=== PATIENT | male | born 1945 | race Caucasian/White ===

== ENCOUNTER 2017-05-25 16:57 | Outpatient (CLI) | payer MEDICARE ==
--- NOTE | 2017-05-25 17:21 | XRAY Preliminary Report ---
Exam: XR CHEST 2 VIEW X-RAY IMPRESSION: Normal 2-view chest radiography. [facility] SITE ID: [id number]
--- NOTE | 2017-05-25 17:37 | XRAY Report ---
EXAM: CHEST RADIOGRAPHY EXAM DATE: 05/25/2017 05:12 PM. CLINICAL HISTORY: Pneumonia diagnosed 2 months ago. Follow-up exam. COMPARISON: None. TECHNIQUE: 2 views. FINDINGS: Lungs/Pleura: No focal opacities evident. No pleural effusion. No pneumothorax. Normal volumes. Mediastinum: Heart and mediastinal contours are unremarkable. Other: None. IMPRESSION: Normal 2-view chest radiography. [facility] Referring Provider Line: [phone] SITE ID: [id number]
== END 2017-05-25 16:58 | disposition home or self-care (01) ==
LOC: DI 16:57
PROVIDERS: ATTEND Specialist
DX: J18.9 Pneumonia, unspecified organism (principal)
CPT/HCPCS: 71046

== ENCOUNTER 2018-08-19 11:09 | Outpatient (CLI) | payer MEDICARE ==
--- NOTE | 2018-08-19 12:30 | CT Report ---
Reason: CALCULUS OF KIDNEY Procedure Date: 08/19/2018 Accession Number: [id number] / [id number] Procedure: CT - Abdomen/Pelvis WO CPT Code: FULL RESULT: EXAM: CT ABDOMEN AND PELVIS (CT KUB) EXAM DATE: 08/19/2018 11:53 AM. CLINICAL HISTORY: Calculus of kidney. COMPARISONS: None. TECHNIQUE: Routine axial helical CT imaging was performed through the abdomen and pelvis without IV contrast. Reconstructions: Coronal and sagittal. In accordance with CT protocol optimization, one or more of the following dose reduction techniques were utilized for this exam: automated exposure control, adjustment of mA and/or KV based on patient size, or use of iterative reconstructive technique. FINDINGS: Lung Bases: Groundglass changes predominantly at the right lung base, mild suggestion of traction bronchiectasis suggestive of scarring. Right Kidney/Ureter: Upper pole 1.2 x 1.1 cm hypodense lesion within the kidneys best appreciated on sagittal image 82 of series 6 but also seen on axial image 46 of series 3, not characterized and not a simple cyst by CT criteria. There is a nonobstructing 3 mm lower pole calculus as well as a nonobstructing anterior 3 mm mid kidney calculus. A 5 mm calcification in the region of the renal hilum was felt to be vascular in nature. No hydronephrosis. Left Kidney/Ureter: Staghorn calculus in the upper pole moiety of the left kidney with the largest fragment measuring 1.2 cm as well as a nonobstructing anterior mid kidney calculus which measures 0.5 cm. Simple cysts are noted in the left kidney. Other Solid Organs: Noncontrast images of the solid organs are grossly unremarkable. Gallbladder/Bile Ducts: Unremarkable. Peritoneal Cavity: No free fluid, free air or tashi adenopathy. Diverticulosis of the sigmoid colon is noted. No bowel obstruction. Pelvic Organs: No bladder stones or wall thickening. Noncontrast images of the visualized pelvic organs are unremarkable. Vasculature: Unremarkable. Other: None. IMPRESSION: Bilateral renal calculi as described. Non-characterized hypodense upper pole right renal lesion. A right renal ultrasound could be obtained to determine whether this represents a simple cyst. Otherwise, definitive characterization by multiphase CT renal mass protocol. [facility]
== END 2018-08-19 11:10 | disposition home or self-care (01) ==
LOC: LAB 11:09
PROVIDERS: ATTEND Specialist
DX: N20.0 Calculus of kidney (principal)
CPT/HCPCS: 74176

== ENCOUNTER 2022-02-23 14:53 | Emergency (ER) | payer MEDICARE, OTHER ==
[2022-02-23] MEDS ORDERED: DEXAMETHASONE 10 MG/ML VIAL IVP STA (15:08)
[2022-02-23] MEDS ORDERED: EPINEPHrine 1 MG/ML AMP IM STA (15:08)
[2022-02-23] MEDS ORDERED: SODIUM CHLORIDE 0.9% 1,000 ML IV STA (15:09)
--- OUTSIDE RECORDS SUMMARY | 2022-02-23 15:24 | EXTERNAL MEDICAL SUMMARY RPT | Continuity of Care Document ---
:1945 Author Organization [facility] Address [address] [place] [address] Phone Allergies No information. Encounters No information. Functional Status No information. Immunizations No information. Medications No information. Problems No information. Procedures No information. Results/Labs test date author facility value unit interpret ation Result panel 1 (unknown) (no (unknown) (unknown) (no value) (units (unk nown) date) unknown) (unknown) (no (unknown) (unknown) [id number] (units (unkno wn) date) unknown) (unknown) (no (unknown) (unknown) 01/14/22 (units (unkno wn) date) unknown) (unknown) (no (unknown) (unknown) [id number] (units (unkn own) date) Street unknown) (unknown) (no (unknown) (unknown) Accession (units (unkn own) date) Number: unknown) [id number] (unknown) (no (unknown) (unknown) Age/Sex: 76 / M (units (unknown) date) Date of Service: unknown) (unknown) (no (unknown) (unknown) [place], [place] (units ( unknown) date) [id number] unknown) (unknown) (no (unknown) (unknown) Approved by: (units (u nknown) date) Prasanna Mendoza M.D. unknown) on 01/14/2022 at 13:12 (unknown) (no (unknown) (unknown) Bones: 5 (units (unkno wn) date) [id number] unknown) vertebrae are present. There is very mild rightward (unknown) (no (unknown) (unknown) COMPARISON: (units (un known) date) None. 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 No acute (unknown) (no (unknown) (unknown) Dictated by: (units (u nknown) date) Prasanna Mendoza M.D. unknown) on 01/14/2022 at 13:02 (unknown) (no (unknown) (unknown) FINDINGS: (units (unkn own) date) unknown) (unknown) (no (unknown) (unknown) IMPRESSION: (units (un known) date) Very mild unknown) rightward curvature of lower lumbar spine centered at (unknown) (no (unknown) (unknown) INDICATIONS: (units (u nknown) date) acute bilateral unknown) low back pain with sciatica (unknown) (no (unknown) (unknown) [facility] (units (unknown) date) unknown) (unknown) (no (unknown) (unknown) L3-4 level. (units (un known) date) unknown) (unknown) (no (unknown) (unknown) Loc: RAD (units (unkno wn) date) unknown) (unknown) (no (unknown) (unknown) Ordering (units (unkno wn) date) Provider: unknown) June Lynn P.A-C (unknown) (no (unknown) (unknown) PROCEDURE: XR (units ( unknown) date) LUMBAR SPINE unknown) 2-3V (unknown) (no (unknown) (unknown) Patient: (units (unkno wn) date) Lenore Carter unknown) MR#: [id number] (unknown) (no (unknown) (unknown) Procedure: XR (units ( unknown) date) lumbar spine unknown) 2-3V (unknown) (no (unknown) (unknown) Signed (units (unkno wn) date) unknown) (unknown) (no (unknown) (unknown) Soft tissues: (units ( unknown) date) Overlying bowel unknown) gas pattern is normal. No suspicious soft (unknown) (no (unknown) (unknown) TECHNIQUE: 3 (units (u nknown) date) views of the unknown) lumbar spine were acquired. (unknown) (no (unknown) (unknown) XRay Report (units (un known) date) unknown) (unknown) (no (unknown) (unknown) at L4-5 and (units (un known) date) L5-S1 levels. No unknown) vertebral body compression fractures. No (unknown) (no (unknown) (unknown) calcifications. (units (unknown) date) unknown) (unknown) (no (unknown) (unknown) compression (units (un known) date) unknown) (unknown) (no (unknown) (unknown) curvature (units (unkn own) date) unknown) (unknown) (no (unknown) (unknown) disc height and (units (unknown) date) bilateral facet unknown) arthrosis throughout lumbar spine is seen more (unknown) (no (unknown) (unknown) fracture or (units (un known) date) significant unknown) listhesis. (unknown) (no (unknown) (unknown) lesions. (units (unkno wn) date) unknown) (unknown) (no (unknown) (unknown) loss of (units (unkno wn) date) unknown) (unknown) (no (unknown) (unknown) of lower lumbar (units (unknown) date) spine centered unknown) at L3-4 level. Degenerative endplate changes, (unknown) (no (unknown) (unknown) prominent (units (unkn own) date) unknown) (unknown) (no (unknown) (unknown) suspicious bony (units (unknown) date) unknown) (unknown) (no (unknown) (unknown) tissue (units (unkno wn) date) unknown) Result panel 2 (unknown) (no (unknown) (unknown) (no value) (units (unk nown) date) unknown) (unknown) (no (unknown) (unknown) (Modic type I (units ( unknown) date) changes). At unknown) least moderate disc bulge is seen, with a central (unknown) (no (unknown) (unknown) 02/14/22 (units (unkno wn) date) unknown) (unknown) (no (unknown) (unknown) [address] [place] [address] (units (unknown) date) unknown) (unknown) (no (unknown) (unknown) 2019. (units (unkno wn) date) unknown) (unknown) (no (unknown) (unknown) ABDOMEN RENAL (units ( unknown) date) PROTOCOL, unknown) 11/30/2018, 16:44. (unknown) (no (unknown) (unknown) Accession (units (unkn own) date) Number: unknown) [id number] (unknown) (no (unknown) (unknown) Age/Sex: 76 / M (units (unknown) date) Date of Service: unknown) (unknown) (no (unknown) (unknown) Alignment and (units ( unknown) date) Curvature: There unknown) is minimal to mild dextroconvex lumbar (unknown) (no (unknown) (unknown) [place], [place] (units ( unknown) date) [id number] unknown) (unknown) (no (unknown) (unknown) Approved by: (units (u nknown) date) Ryley Blair, alex) Cee on 02/14/2022 at 12:34 (unknown) (no (unknown) (unknown) Bone Marrow: (units (u nknown) date) Marrow is of unknown) normal overall signal. No acute vertebral body (unknown) (no (unknown) (unknown) COMPARISON: (units (un known) date) [facility], unknown) MR, MR LUMBAR SPINE WO CON, 11/13/2018, 10:24. (unknown) (no (unknown) (unknown) CT, CT (units (unkno wn) date) unknown) (unknown) (no (unknown) (unknown) : 1945 (units (unknown) date) Acct:[id number] unknown) (unknown) (no (unknown) (unknown) Dictated by: (units (u nknown) date) Ryley Blair, alex) Cee on 02/14/2022 at 12:29 (unknown) (no (unknown) (unknown) FINDINGS: (units (unkn own) date) unknown) (unknown) (no (unknown) (unknown) Hospital, CR, XR (units (unknown) date) LUMBAR SPINE unknown) 2-3V, 01/14/2022, 11:19. [facility], (unknown) (no (unknown) (unknown) IMPRESSION: (units (un known) date) Lower lumbar unknown) spine degenerative changes are seen, which are (unknown) (no (unknown) (unknown) INDICATIONS: (units (u nknown) date) SPONDYLOLISTHESIS unknown) , LUMBAR REGION (unknown) (no (unknown) (unknown) Image quality: (units (unknown) date) This examination unknown) is limited by involuntary motion artifact. (unknown) (no (unknown) (unknown) [facility] (units (unknown) date) unknown) (unknown) (no (unknown) (unknown) [place] (units (unkno wn) date) unknown) (unknown) (no (unknown) (unknown) L1-L2: No (units (unkn own) date) significant unknown) abnormality is seen. (unknown) (no (unknown) (unknown) L2-L3: No (units (unkn own) date) significant unknown) abnormality is seen. (unknown) (no (unknown) (unknown) L3-L4: The disc (units (unknown) date) height is unknown) well-preserved. Loss of disc signal is seen at this (unknown) (no (unknown) (unknown) L4-L5 compared (units (unknown) date) to 2019, yet unknown) otherwise appear similar to the prior images. (unknown) (no (unknown) (unknown) L4-L5: There is (units (unknown) date) at least moderate unknown) loss of disc height and disc signal seen on (unknown) (no (unknown) (unknown) L5-S1: (units (unkno wn) date) [id number] unknown) loss of disc height and disc signal can be seen. (unknown) (no (unknown) (unknown) Loc: MRI (units (unkno wn) date) unknown) (unknown) (no (unknown) (unknown) [id number] (units (unk nown) date) unknown) (unknown) (no (unknown) (unknown) Magnetic (units (unkno wn) date) Resonance Report unknown) (unknown) (no (unknown) (unknown) Moderate disc (units ( unknown) date) bulge is seen, unknown) which is eccentric to the right. Mild facet joint (unknown) (no (unknown) (unknown) Moderate (units (unkno wn) date) unknown) (unknown) (no (unknown) (unknown) No significant (units (unknown) date) left-sided neural unknown) foraminal narrowing is seen. Mild central (unknown) (no (unknown) (unknown) Noncontrast (units (un known) date) sagittal T1 spin unknown) echo and T2 fast echo, sagittal STIR, and T2 fast (unknown) (no (unknown) (unknown) Ordering (units (unkno wn) date) Provider: unknown) Maddy Seymour MD (unknown) (no (unknown) (unknown) PROCEDURE: MR (units ( unknown) date) LUMBAR SPINE WO unknown) CON (unknown) (no (unknown) (unknown) Paraspinous Soft (units (unknown) date) Tissues: No unknown) paravertebral masses. Simple appearing bilateral (unknown) (no (unknown) (unknown) Patient: (units (unkno wn) date) Lenore Carter A unknown) MR#: (unknown) (no (unknown) (unknown) Procedure: MR (units ( unknown) date) lumbar spine wo unknown) con (unknown) (no (unknown) (unknown) Signed (units (unkno wn) date) unknown) (unknown) (no (unknown) (unknown) Spinal Cord: (units (u nknown) date) Conus medullaris unknown) terminates at the L1 level. Visualized cord (unknown) (no (unknown) (unknown) T12-L1: Normal (units (unknown) date) appearance. unknown) (unknown) (no (unknown) (unknown) TECHNIQUE: (units (unk nown) date) unknown) (unknown) (no (unknown) (unknown) There is at (units (un known) date) least moderate unknown) right-sided and moderate to severe left-sided neural (unknown) (no (unknown) (unknown) alignment (units (unkn own) date) abnormality is unknown) seen. (unknown) (no (unknown) (unknown) as on (units (unkno wn) date) unknown) (unknown) (no (unknown) (unknown) be seen. (units (unkno wn) date) unknown) (unknown) (no (unknown) (unknown) canal (units (unkno wn) date) unknown) (unknown) (no (unknown) (unknown) compared to (units (un known) date) unknown) (unknown) (no (unknown) (unknown) compression (units (un known) date) unknown) (unknown) (no (unknown) (unknown) curvature. There (units (unknown) date) is overall unknown) straightening of the normal lumbar lordosis. No (unknown) (no (unknown) (unknown) cysts can be (units (u nknown) date) seen. unknown) (unknown) (no (unknown) (unknown) demonstrates (units (u nknown) date) unknown) (unknown) (no (unknown) (unknown) disc (units (unkno wn) date) unknown) (unknown) (no (unknown) (unknown) edema (units (unkno wn) date) unknown) (unknown) (no (unknown) (unknown) extrusion, with (units (unknown) date) mild superior unknown) migration of the disc material. Moderate to (unknown) (no (unknown) (unknown) facet (units (unkno wn) date) hypertrophy is unknown) seen. Associated hypertrophy of the ligamentum flavum can (unknown) (no (unknown) (unknown) findings are (units (u nknown) date) unknown) (unknown) (no (unknown) (unknown) focal AP (units (unkno wn) date) unknown) (unknown) (no (unknown) (unknown) foraminal (units (unkn own) date) narrowing, with a unknown) degree of compression upon the exiting right L5 (unknown) (no (unknown) (unknown) foraminal (units (unkn own) date) unknown) (unknown) (no (unknown) (unknown) fractures. (units (unk nown) date) unknown) (unknown) (no (unknown) (unknown) generalized disc (units (unknown) date) bulge is seen. unknown) There is a superimposed central disc (unknown) (no (unknown) (unknown) hypertrophy is (units (unknown) date) seen. There is unknown) [id number] bilateral neural foraminal (unknown) (no (unknown) (unknown) images, these (units ( unknown) date) findings are unknown) similar. (unknown) (no (unknown) (unknown) imaging and (units (un known) date) hyperintense on unknown) T2 weighted imaging, which is most consistent with (unknown) (no (unknown) (unknown) level. (units (unkno wn) date) unknown) (unknown) (no (unknown) (unknown) may be (units (unkno wn) date) performed. unknown) (unknown) (no (unknown) (unknown) narrowing is (units (u nknown) date) seen. When unknown) comparison is made with the prior images, these (unknown) (no (unknown) (unknown) narrowing (units (unkn own) date) unknown) (unknown) (no (unknown) (unknown) narrowing. (units (unk nown) date) Moderate to unknown) severe central canal narrowing is seen at this level, (unknown) (no (unknown) (unknown) nerve root. (units (un known) date) unknown) (unknown) (no (unknown) (unknown) neural (units (unkno wn) date) unknown) (unknown) (no (unknown) (unknown) normal signal (units ( unknown) date) and size. unknown) (unknown) (no (unknown) (unknown) prior (units (unkno wn) date) unknown) (unknown) (no (unknown) (unknown) progressed at (units ( unknown) date) unknown) (unknown) (no (unknown) (unknown) prominent (units (unkn own) date) unknown) (unknown) (no (unknown) (unknown) protrusion. Mild (units (unknown) date) unknown) (unknown) (no (unknown) (unknown) renal (units (unkno wn) date) unknown) (unknown) (no (unknown) (unknown) scoliotic (units (unkn own) date) unknown) (unknown) (no (unknown) (unknown) seen. Mild (units (unk nown) date) central canal unknown) narrowing is seen. When comparison is made with the (unknown) (no (unknown) (unknown) series 6, image (units (unknown) date) 5. The degree of unknown) central canal narrowing is mildly progressed (unknown) (no (unknown) (unknown) side. Reactive (units (unknown) date) marrow endplate unknown) changes are seen which are hypointense on T1 (unknown) (no (unknown) (unknown) similar. (units (unkno wn) date) unknown) (unknown) (no (unknown) (unknown) spin echo (units (unkn own) date) unknown) (unknown) (no (unknown) (unknown) the left (units (unkno wn) date) unknown) (unknown) (no (unknown) (unknown) through the (units (un known) date) lumbar spine. In unknown) cases with scoliosis, additional coronal T2 fast (unknown) (no (unknown) (unknown) to moderate (units (un known) date) facet hypertrophy unknown) is seen. There is moderate to severe right-sided (unknown) (no (unknown) (unknown) weighted (units (unkno wn) date) unknown) Social History No information. Vital Signs No information.
--- NOTE | 2022-02-23 15:35 | ED Physician Documentation ---
History of Present Illness - Stated complaint Stated Complaint: ALLERGIC REACTION/BEE STING - Chief complaint Chief Complaint: Allergic Rx - History obtained from History obtained from: Patient - Additonal information Additional information: Patient is a 76-year-old male who was stung by a bee approximately 90 minutes ago presenting for evaluation of feeling tightness in his throat, swelling to his upper lip, dizziness and lightheaded starting 45 minutes ago. Patient has been stung in the past without similar reactions.He denies chest pain, trouble breathing, abdominal pain. He does report some nausea. Review of Systems Constitutional: denies: Fever Nose: denies: Congestion Throat: reports: Other (Throat tightness) Cardiac: denies: Chest pain / pressure Respiratory: denies: Dyspnea GI: reports: Nausea. denies: Abdominal Pain Skin: denies: Rash Musculoskeletal: denies: Back pain Neurologic: denies: Syncope PD PAST MEDICAL HISTORY - Present Medications Home Medications: Ambulatory Orders Medication Instructions Recorded Confirmed EPINEPHrine [Epinephrine] 0.3 mg IJ ONCE PRN #2 each 02/23/22 - Allergies Allergies/Adverse Reactions: Allergies Allergy/AdvReac Type Severity Reaction Status Date / Time Penicillins Allergy Anaphylaxis Verified 02/23/22 15:02 PD ED PE NORMAL - General General: Alert and oriented X 3, No acute distress, Well developed/nourished - HEENT HEENT: Atraumatic, Moist mucous membranes, Other (Mild swelling to upper lip, no oral swelling, normal phonation, speech is clear, tolerating secretions, tongue and uvula are not edematous) - Neck Neck: Supple, no meningeal sign - Cardiac Cardiac: RRR, Strong equal pulses - Respiratory Respiratory: No respiratory distress, Clear bilaterally - Abdomen Abdomen: Soft, Non tender - Derm Derm: Warm and dry - Neuro Neuro: Normal speech Results - Vitals Vitals: Vital Signs - 24 hr 02/23/22 02/23/22 02/23/22 14:59 15:32 16:02 Temperature 36 C L Heart Rate 110 H 75 92 Respiratory 16 22 24 Rate Blood Pressure 80/50 L 91/64 120/65 O2 Saturation 97 97 98 02/23/22 02/23/22 02/23/22 16:28 17:00 17:30 Temperature Heart Rate 87 88 89 Respiratory 18 19 18 Rate Blood Pressure 120/65 113/63 117/67 O2 Saturation 97 96 95 Oxygen O2 Source Room air - EKG (time done) 1538 Rate: Rate (enter#) (95) Rhythm: NSR Intervals: RBBB Ischemia: No: ST elevation c/w ischemia PD MEDICAL DECISION MAKING - ED course Complexity details: re-evaluated patient, d/w patient, d/w family ED course: 1600 - Patient is feeling better. Swelling has gone down. Voice is normal. Lungs are clear. We will continue to monitor. Patient presenting for evaluation of symptoms concerning for anaphylactic reaction after bee sting.He was given epinephrine IM as well as Decadron and IV fluids. His symptoms had a significant improvement and he has returned to his baseline with clear speech, no swelling, And normal lung sounds. Patient was counseled on need to continue to carry an EpiPen with him here. He was counseled on concerning symptoms to return for. is at the bedside and is also aware of treatment plan. Departure - Departure Disposition: 01 Home, Self Care Clinical Impression: Hymenoptera sting Anaphylactic reaction Qualifiers: Encounter type: initial encounter Qualified Code(s): T78.2XXA - Anaphylactic sh ock, unspecified, initial encounter Condition: Stable Instructions: ED Bite Sting Insect Gen Allergic React, ED Anaphylaxis General Prescriptions: EPINEPHrine [Epinephrine] 0.3 mg IJ ONCE PRN #2 each PRN Reason: Allergy Symptoms Comments: You were treated for an anaphylactic reaction after being stung by a bee. We did give you epinephrine and steroids and it seems like your symptoms have improved. I have sent a prescription for EpiPen's to [facility] in [place]. I would recommend carrying an EpiPen with you at all times especially if you are working around your bees.If you notice any areas of itching you can use Benadryl. If you have any worsening symptoms such as swelling, throat tightness or have any concerns please call 911 or return immediately to the ER. Discharge Date/Time: 02/23/22 18:02
[2022-02-23 17:56] VITALS: BP 117/67
== END 2022-02-23 18:02 | disposition home or self-care (01) ==
LOC: ED 14:53
DX: T78.2XXA Anaphylactic shock, unspecified, initial encounter (principal); T63.441A Toxic effect of venom of bees, accidental (unintentional), initial encounter
CPT/HCPCS: 93005; 96374; 99284

== ENCOUNTER 2023-04-23 08:00 | Outpatient (CLI) | payer MEDICARE, OTHER ==
[2023-04-23 19:13] LABS: INFLUENZA A- RESP PCR PANEL NOT DETECTED; INFLUENZA B - RESP PCR PANEL NOT DETECTED; RSV- RESP PCR PANEL NOT DETECTED; SARS-CoV-2 -RESP PCR PANEL NOT DETECTED
== END 2023-04-23 23:59 | disposition home or self-care (01) ==
LOC: LAB.N 08:00
PROVIDERS: ATTEND Family Medicine
DX: J20.9 Acute bronchitis, unspecified (principal)
CPT/HCPCS: 87637

== ENCOUNTER 2023-04-24 08:37 | Outpatient (CLI) | payer MEDICARE, OTHER ==
--- NOTE | 2023-04-25 01:20 | XRAY Report ---
PROCEDURE: Chest 2V INDICATIONS: ACUTE BRONCHITIS TECHNIQUE: 2 views of the chest were acquired. COMPARISON: None. FINDINGS: Surgical changes and devices: None. Lungs and pleura: No pleural effusions or pneumothorax. Bilateral perihilar bronchial wall thickenin g. Subtle bilateral lower lobe patchy consolidation. Mediastinum: Mediastinal contours appear normal . Heart size is normal. Bones and chest wall: No suspicious bony lesions. Overlying soft tissues appear unremarkable. IMPRESSION: 1.Bilateral perihilar bronchial wall thickening suggestive of reactive airways disease versus viral b ronchitis. . 2.Subtle bilateral lower lobe patchy consolidation which may represent aspiration and/or pneumonia. Reviewed by: Joellen Eddy MD on 04/25/2023 1:19 AM PST Approved by: Joellen Eddy MD on 04/25/2023 1:19 AM PST Station ID: [id number]
== END 2023-04-24 08:38 | disposition home or self-care (01) ==
LOC: DI.N 08:37
PROVIDERS: ATTEND Family Medicine
DX: J20.9 Acute bronchitis, unspecified (principal); R05.9 Cough, unspecified; R91.8 Other nonspecific abnormal finding of lung field

== ENCOUNTER 2023-06-12 10:45 | Outpatient (CLI) | payer MEDICARE, OTHER ==
--- NOTE | 2023-06-12 12:57 | XRAY Report ---
PROCEDURE: Chest 2V INDICATIONS: ACUTE COUGH TECHNIQUE: 2 views of the chest were acquired. COMPARISON: 04/24/2023 FINDINGS: Surgical changes and devices: None. Lungs and pleura: Low lung volumes. No dense airspace disease or pleural effusions. Possible basal s carring or atelectasis again seen. Mild peribronchial opacities persist. Mediastinum: Normal heart size Bones and chest wall: Degenerative changes. IMPRESSION: Possible persistent mild peribronchial opacities, representing atypical infection/bronchitis in the s etting of cough. Consider future imaging surveillance to assess for resolution. No dense airspace dis ease or pleural effusions. Reviewed by: Charlie Evans MD on 06/12/2023 12:56 PM PST Approved by: Charlie Evans MD on 06/12/2023 12:56 PM PST Station ID: [id number]
== END 2023-06-12 11:00 | disposition home or self-care (01) ==
LOC: DI.N 10:45
PROVIDERS: ATTEND Physician Assistant Medical
DX: R05.1 Acute cough (principal)